=== PATIENT | female | born 1955 | race Caucasian/White ===

== ENCOUNTER 2019-05-10 10:43 | Observation (INO) | payer OTHER ==
[~2019-05-10] VITALS: Ht 162.6 cm; Wt 72.6 kg
[~2019-05-10 10:43] MED LIST: AMLODIPINE BESY10 M1 PO; BENICAR40 MG PO; ECO81 PO; FLO4 PO; GLIPIZIDE10 MG PO; GLU500 PO; LEVAQUIN250 MG PO; PYRIDIUM200 MG PO; ZOC10 PO
[2019-05-10 10:56] VITALS: Ht 162.6 cm; Wt 72.6 kg
[2019-05-10 11:45] LABS: BASOPHIL % 0.4 % (0-2); PLATELET COUNT 193 x10^3mcL (130-400)
[2019-05-10 11:49] LABS: RED CELL DISTRIBUTION WIDTH 14.6 % (11.5-14.5)
[2019-05-10 12:06] LABS: T3 TOTAL 1.03 ng/mL
[2019-05-10 12:09] LABS: CALCIUM 8.5 mg/dL (8.5-10.1); CARBON DIOXIDE 24.9 mmol/L (21-32); CHLORIDE SERUM 108 mmol/L (98-107); CREATININE SERUM 0.7 mg/dL (0.6-1.0); GFR1 > 60 mL/min; GLUCOSE SERUM 163 mg/dL (74-106); POTASSIUM SERUM 4.1 mmol/L (3.5-5.1); SODIUM SERUM 140 mmol/L (136-145)
[2019-05-10 12:27] LABS: ALKALINE PHOSPHATASE 65 U/L (46-116); ALT/SGPT 16 U/L (14-59); AST/SGOT 18 U/L (15-37); BILIRUBIN TOTAL 0.34 mg/dL (0.20-1.00); CHOLESTEROL 154 mg/dL (<200); CHOLESTEROL/HDL RATIO 3.1; HDL CHOLESTEROL 49 mg/dL (40-60); LIPASE 123 IU/L (73-393); TOTAL PROTEIN, SERUM 6.6 g/dL (6.4-8.2); TRIGLYCERIDES 91 mg/dL (<150)
[2019-05-10 12:28] LABS: ALBUMIN 3.1 g/dL (3.4-5.0)
[2019-05-10 13:01] LABS: FREE T4 1.13 ng/dL (0.76-1.46); FREE THYROXINE INDEX 3.2 ug/dL (1.4-4.5); T4(THYROXINE) 8.9 ug/dL (4.7-13.3)
[2019-05-10 16:55] VITALS: BP 200/80
[2019-05-10 18:48] VITALS: BP 138/64
[2019-05-10 18:54] VITALS: BP 138/64
== END 2019-05-10 19:47 | disposition home or self-care (01) | DRG 305 ==
LOC: ED 10:43 → DU 14:52
PROVIDERS: Specialist; ADMIT Internal Medicine Pulmonary Disease
DX: I16.0 Hypertensive urgency (principal); T46.5X6A Underdosing of other antihypertensive drugs, initial encounter; R07.89 Other chest pain; I10 Essential (primary) hypertension; E11.9 Type 2 diabetes mellitus without complications; E78.5 Hyperlipidemia, unspecified; Y92.009 Unspecified place in unspecified non-institutional (private) residence as the place of occurrence of the external cause
CPT/HCPCS: 82962; 83880; 84439; 85378; 90658; 90732; G0378; J2270; J2405; J7030; Q0092